=== PATIENT | male | born 1970 | race Caucasian/White ===

== ENCOUNTER 2019-09-06 17:40 | Emergency (ER) | payer SELFPAY ==
[~2019-09-06] VITALS: Ht 172.7 cm; Wt 79.0 kg
[~2019-09-06 17:40] MED LIST: CIPROFLOXACN500 MG PO; MEDDOSEPAK PO
[2019-09-06 18:03] VITALS: BP 142/83
[2019-09-06] MEDS ORDERED: GENTAMICIN0.31 OD (20:07)
== END 2019-09-06 20:20 | disposition home or self-care (01) | DRG 125 ==
LOC: ED 17:40
DX: H01.004 Unspecified blepharitis left upper eyelid (principal)